=== PATIENT | female | born 1945 | race Caucasian/White ===

== ENCOUNTER → 2016-12-31 | Outpatient (CLI) | payer MEDICARE, BC, OTHER ==
--- NOTE | 2016-12-31 14:27 | REP ---
Chest two views HISTORY: Shortness of breath Comparison: 12/04/2016 The lungs are clear. The heart is normal in size. The pulmonary vasculature is normal in appearance. The bony structure is intact. A cardiac pacemaker is present. IMPRESSION: No acute disease. Signed by Yair Hartley MD 12/31/2016 02:19 P
== END ==
LOC: M RAD 13:31
PROVIDERS: ATTEND Internal Medicine Cardiovascular Disease
DX: R06.02 Shortness of breath (principal)

== ENCOUNTER → 2018-10-09 | Outpatient (CLI) | payer MEDICARE, BC, OTHER ==
--- NOTE | 2018-10-09 12:14 | REP ---
Maxillofacial CT study without contrast: History: Chronic pansinusitis. Comparison paranasal sinus radiographs are from August 20, 2007. CT findings: The frontal sinuses are clear. Ethmoid and sphenoid sinuses are clear. The mastoid air cells are normal and symmetric. Maxillary sinuses are clear except for a small mucous retention cyst and mild mucosal thickening inferiorly in the right maxillary sinus. The ostiomeatal complexes are patent bilaterally. Nasal turbinate and soft tissues are unremarkable and symmetric. Nasal septum bows gently to the left without a visible beak. No intraorbital abnormality is seen. Visualized intracranial structures are unremarkable. Impression: Minimal mucosal thickening inferiorly in the right maxillary sinus. Otherwise normal. Electronically Signed by Suraj Hannon MD 10/09/2018 12:57 P
== END ==
LOC: M RAD 10:35
PROVIDERS: ATTEND Nurse Practitioner Family
DX: J32.4 Chronic pansinusitis (principal)

== ENCOUNTER → 2019-02-19 | Outpatient (REF) | payer MEDICARE, OTHER ==
[2019-02-19 18:04] LABS: APPEARANCE, URINE CLEAR (CLEAR); BACTERIA, URINE AUTO NEGATIVE (NEGATIVE); BILIRUBIN, URINE AUTO NEGATIVE (NEGATIVE); BLOOD, URINE BLOOD 2+ (NEGATIVE); COLOR, URINE YELLOW (YELLOW); GLUCOSE, URINE (UA) AUTO NEGATIVE (NEGATIVE); KETONE, URINE AUTO NEGATIVE (NEGATIVE); LEUKOCYTE ESTERASE, URINE AUTO NEGATIVE (NEGATIVE); MUCUS, URINE SMALL (NEGATIVE); NITRITE, URINE AUTO NEGATIVE (NEGATIVE); PROTEIN, URINE AUTO NEGATIVE (NEGATIVE); RBC, URINE AUTO 11 /HPF (0-3); SQUAMOUS EPITHELIAL CELL UR AU 0 /HPF (0-6); UROBILINOGEN, URINE AUTO 0.2 mg/dL (0.0-2.0); WBC, URINE AUTO 0 /HPF (0-3)
== END ==
LOC: M LAB REF 17:18
PROVIDERS: ATTEND Obstetrics & Gynecology
DX: N81.11 Cystocele, midline (principal); N39.41 Urge incontinence

== ENCOUNTER → 2019-07-16 | Outpatient (REF) | payer MEDICARE, OTHER | LOC: M LAB REF 15:54 | PROVIDERS: ATTEND Nurse Practitioner Family | DX: R30.0 Dysuria (principal) ==

== ENCOUNTER → 2019-07-16 | Outpatient (CLI) | payer MEDICARE, OTHER ==
[2019-07-16 16:22] LABS: BASO # 0.1 10^3/uL (0.0-0.2); BASO % 0.5 % (0.0-1.0); EOS % 0.2 % (0.0-3.0); HEMATOCRIT 39.5 % (36.0-47.0); HEMOGLOBIN 12.9 g/dl (12.0-15.5); LYMPH # 0.8 10^3/uL (1.5-5.0); LYMPH % 6.6 % (24.0-44.0); MEAN CORPUSCULAR HEMOGLOBIN 28.9 pg (27.0-33.0); MEAN CORPUSCULAR HGB CONC 32.7 g/dl (32.0-36.5); MEAN CORPUSCULAR VOLUME 88.4 fl (80.0-96.0); MONO # 0.6 10^3/uL (0.0-0.8); MONO % 4.6 % (0.0-5.0); NEUTROPHILS # 10.6 10^3/uL (1.5-8.5); NEUTROPHILS % 87.5 % (36.0-66.0); PLATELET COUNT, AUTOMATED 299 10^3/uL (150-450); RED BLOOD COUNT 4.47 10^6/uL (4.00-5.40); WHITE BLOOD COUNT 12.1 10^3/uL (4.0-10.0)
[2019-07-16 16:30] LABS: INR 1.93; PROTHROMBIN TIME 21.9 SECONDS (11.8-14.0)
[2019-07-16 16:57] LABS: CREATININE FOR GFR 1.09 MG/DL (0.55-1.30); GLOMERULAR FILTRATION RATE 52.2 (>39); POTASSIUM SERUM 4.1 MEQ/L (3.5-5.1)
== END ==
LOC: M WUC 13:30
PROVIDERS: ATTEND Nurse Practitioner Family
DX: K57.93 Diverticulitis of intestine, part unspecified, without perforation or abscess with bleeding (principal); R30.0 Dysuria

== ENCOUNTER 2019-12-19 10:31 | Inpatient (IN) | payer MEDICARE, BC, OTHER ==
[~2019-12-19] VITALS: Ht 162.6 cm; Wt 83.9 kg
[~2019-12-19 10:31] MED LIST: AMIODARONE 200 MG TAB (PACERONE) PO SCH
[2019-12-19] MEDS ORDERED: ALBU83IN (10:39)
[2019-12-19] MEDS ORDERED: METO1TAB33 PO (10:39)
[2019-12-19] MEDS ORDERED: BUDE10.2 PO (10:39)
[2019-12-19] MEDS ORDERED: REST0.05 OU (10:39)
[2019-12-19] MEDS ORDERED: MAGN250T6 PO (10:39)
[2019-12-19] MEDS ORDERED: LOSA50TA88 PO (10:39)
[2019-12-19] MEDS ORDERED: FURO20TA2 PO (10:39)
[2019-12-19] MEDS ORDERED: WARF-18 PO (10:39)
[2019-12-19] MEDS ORDERED: MONT10TA4 PO (10:39)
[2019-12-19] MEDS ORDERED: INSULIN HUMAN REGULAR 100 UNITS in NS 99 ML IV SCH (10:53)
[2019-12-19] MEDS ORDERED: METOPROLOL 5 MG/5 ML VIAL As Ordered ONE (10:57)
[2019-12-19] MEDS ORDERED: INSULIN IV RATE CHANGE DOCUMENTATION ML/HR XX SCH (11:00)
[2019-12-19] MEDS ORDERED: NS 1,000 ML IV ONE ×2 (11:00)
[2019-12-19 11:04] LABS: BASO # 0.1 10^3/uL (0.0-0.2); BASO % 0.6 % (0.0-1.0); EOS # 0.1 10^3/uL (0.0-0.5); EOS % 0.4 % (0.0-3.0); HEMATOCRIT 41.2 % (36.0-47.0); HEMOGLOBIN 13.8 g/dl (12.0-15.5); LYMPH # 1.7 10^3/uL (1.5-5.0); LYMPH % 14.3 % (24.0-44.0); MEAN CORPUSCULAR HEMOGLOBIN 28.5 pg (27.0-33.0); MEAN CORPUSCULAR HGB CONC 33.5 g/dl (32.0-36.5); MEAN CORPUSCULAR VOLUME 84.9 fl (80.0-96.0); MONO # 1.5 10^3/uL (0.0-0.8); MONO % 12.5 % (0.0-5.0); NEUTROPHILS # 8.4 10^3/uL (1.5-8.5); NEUTROPHILS % 71.8 % (36.0-66.0); PLATELET COUNT, AUTOMATED 255 10^3/uL (150-450); RED BLOOD COUNT 4.85 10^6/uL (4.00-5.40); WHITE BLOOD COUNT 11.7 10^3/uL (4.0-10.0)
[2019-12-19] MEDS: METOPROLOL 5 MG/5 ML VIAL IV SCH ×2 (11:05→11:10)
[2019-12-19 11:15] LABS: INR 3.16; PROTHROMBIN TIME 32.4 SECONDS (11.8-14.0)
[2019-12-19 11:16] LABS: PARTIAL THROMBOPLASTIN TIME 48.1 SECONDS (25.0-38.4)
[2019-12-19] MEDS ORDERED: DIGOXIN INJ 0.5 MG/2 ML AMP (J1160) IV STA (11:16)
[2019-12-19] MEDS ORDERED: AMIODARONE HCL 150 MG in IV 1 EA IV STA (11:18)
[2019-12-19] MEDS ORDERED: AMIODARONE 150MG/3ML INJ (J0282) As Ordered ONE (11:24)
[2019-12-19] MEDS ORDERED: AMIODARONE HCL 150 MG/100 ML PREMIXED BAG (NEXTERONE) (J0282 PER 30MG) As Ordered ONE (11:26)
[2019-12-19 11:44] LABS: ALBUMIN 3.3 GM/DL (3.2-5.2); ALT/SGPT 20 U/L (12-78); BILIRUBIN,DIRECT 0.1 MG/DL (0.0-0.2); BILIRUBIN,TOTAL 0.7 MG/DL (0.2-1.0); CK-MB VALUE MASS 1.3 NG/ML (<3.6); CPK CREATINE PHOSPHOKINASE 75 U/L (26-192); FREE T4 1.32 NG/DL (0.76-1.46); LIPASE 109 U/L (73-393); MB/CK RELATIVE INDEX 1.73 (< OR =4); NT-PRO BNP 893 PG/ML (<450); TROPONIN I < 0.02 NG/ML (< 0.10)
[2019-12-19] MEDS ORDERED: BYST5TAB2 PO (11:47)
[2019-12-19] MEDS ORDERED: VENTAER INH (12:08)
[2019-12-19] MEDS ORDERED: WARF-23 PO (12:08)
[2019-12-19] MEDS ORDERED: VITA1CHW7 PO (12:08)
[2019-12-19] MEDS ORDERED: VITA200010 PO (12:10)
[2019-12-19] MEDS ORDERED: MAALOX 30 ML SUSP *UDC PO PRN (12:30)
[2019-12-19] MEDS ORDERED: ACETAMINOPHEN TAB 650MG DOSE (2X325MG) PO PRN (12:30)
[2019-12-19] MEDS ORDERED: MOM 30ML SUSPENSION UDC PO PRN (12:30)
[2019-12-19] MEDS ORDERED: AMIODARONE HCL 360 MG in IV 1 EA IV SCH ×2 (12:30→18:30)
[2019-12-19] MEDS ORDERED: ALBUTEROL 90 MCG/ACT 8GM HFA INHALER INH PRN (12:45)
--- NOTE | 2019-12-19 12:59 | HPEPDOC ---
General Date of Admission Date of Service: December 19, 2019 Attending Physician: WILLIAN YOUNG Chief Complaint The patient is a 74-year-old female admitted with a reason for visit of Palpitations. Source: Patient Exam Limitations: No limitations Timing/Duration: Other Severity: Moderate (since yesterday) Associated Symptoms: Other (, palpitations) History of Present Illness This is a 73 years old white female with past medical history of paroxysmal atrial fibrillation, status post permanent pacemaker secondary to sick sinus syndrome, hyperlipidemia, hypertension, obstructive sleep apnea, GERD, abdominal aortic aneurysm which improved, but again this morning she started having palpitations with chest tightness and around 8:30 and she came to ER. In the emergency room, she was found to be in atrial fibrillation with rapid ventricular response. Patient did get 1 dose of metoprolol IV without any effect Dr. Palomo was called and he recommended loading dose of IV amiodarone and a loading dose of digoxin to be given. Of the metoprolol. She developed hypotension. Hence, she received normal saline 500 mL with improvement in her blood pressure. Patient is comfortable, complaining of palpitations and chest discomfort but not pain, Position is midsternal, nonradiating, associated with palpitations, not relieved with any medication, not worsened with any position or breathing, present since yesterday, frequency is on and off. Home Medications Scheduled Budesonide/Formoterol Fumarate (Budesonide-Formoterol 160-4.5) 10.2 Gm Hfa.aer.ad, 2 PUFFS PO BID, (Reported) Cholecalciferol (Vitamin D3) (Vitamin D3) 50 Mcg Tablet, 2,000 UNITS PO DAILY, (Reported) Cyclosporine (Restasis) 0.05% Droperette, 1 DROP OU BID, (Reported) Furosemide (Furosemide) 20 Mg Tablet, 20 MG PO DAILY, (Reported) Losartan Potassium (Losartan Potassium) 50 Mg Tablet, 50 MG PO BID, (Reported) Magnesium Oxide (Magnesium Oxide) 250 Mg Tablet, 500 MG PO DAILY, (Reported) Metoprolol Succinate (Metoprolol Succinate) 100 Mg Tab.er.24h, 100 MG PO DAILY, (Reported) Montelukast Sodium (Montelukast Sodium) 10 Mg Tablet, 10 MG PO DAILY, (Reported) Warfarin Sodium (Warfarin Sodium) 2.5 Mg Tablet, 2.5 MG PO 4XWK, (Reported) takes on Friday, Friday, Friday, Friday Warfarin Sodium (Warfarin Sodium) 5 Mg Tablet, 5 MG PO 3XW, (Reported) takes on Friday, , Friday Scheduled PRN Albuterol Sulfate (Ventolin Hfa) 18 Gm Hfa.aer.ad, 2 PUFFS INH QID PRN for DYSPNEA, (Reported) Allergies Coded Allergies: TAPE (Verified Allergy, Unknown, BURN LIKE REACTION ON SKIN, 12/19/19) codeine (Verified Allergy, Unknown, 12/19/19) formaldehyde (Verified Allergy, Unknown, 12/19/19) Contrast Media (Unverified Adverse Reaction, Severe, SUNBURN LOOK TO SKIN, 01/18/10) Past Medical History Medical History Abdominal aortic aneurysm, aortic wall disorder, arthritis proximal atrial fibrillation, cardiac pacemaker, history of sick sinus syndrome, GERD, COPD, history of rheumatic fever, 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 Mother had lung disease and breast cancer and father had prostate cancer. One of her sister is diabetic Social History * Smoker: Denies Alcohol: Denies A-FIB/CHADSVASC A-FIB History Current/History of A-Fib/PAF?: Yes Current PO Anticoag Therapy: Yes Review of Systems Constitutional: Denies: Chills, Fever, Malaise, Night Sweats, Weakness, Fatigue, Weight Loss, Lethargy, Other Eyes: Denies: Pain, Vision change, Conjunctivae inflammation, Eyelid inflammation, Redness, Other ENT: Denies: Head Aches, Ear Pain, Dysphagia, Sinus Congestion, Post Nasal Drip, Sore Throat, Epistaxis, Other Symptoms Skin: Denies: Rash, Lesions, Jaundice, Bruising, Itching, Dry, Breakdown, Nail Changes, Other Pulmonary: Denies: Dyspnea, Cough, Pleuritic Chest Pain, Other Symptoms Cardiovascular: Reports: Chest Pain, Palpitations Gastrointestinal: Denies: Nausea, Vomiting, Abdominal Pain, Diarrhea, Constipation, Melena, Hematochezia, Other Symptoms Genitourinary: Denies: Dysuria, Frequency, Incontinence, Hematuria, Retention, Other Symptoms Hematologic: Denies: Bruising, Bleeding Excessively, Petecchia, Purpura, Enlarged Lymph Nodes, Other Hematologic Endocrine: Denies: Polydipsia, Polyphagia, Polyuria, Heat Intolerance, Cold Intolerance, Other Endocrine Sx Musculoskeletal: Denies: Neck Pain, Back Pain, Shoulder Pain, Arm Pain, Hand Pain, Leg Pain, Foot Pain, Joint Pain, Muscle Pain, Spasms, Other Symptoms Neurological: Denies: Weakness, Numbness, Change in speech, Confusion Physical Examination General Exam: Positive: Alert, Cooperative Eye Exam: Positive: PERRLA, Conjunctiva & lids normal ENT Exam: Positive: Atraumatic, Mucous membr. moist/pink Neck Exam: Positive: Supple Chest Exam: Positive: Clear to auscultation, Normal air movement Heart Exam: Positive: Tachycardic, Irregular Rhythm, Normal S1, Normal S2 Telemetry: Positive: Atrial fibrillation Abdomen Exam: Positive: Normal bowel sounds, Soft Extremity Exam: Positive: Normal pulses Skin Exam: Positive: Nl turgor and temperature Neuro Exam: Positive: Strength at 5/5 X4 ext, Sensation Intact, Cranial Nerves 3-12 NL Psych Exam: Positive: Mood NL, Oriented x 3 Vital Signs Vital Signs Date Time Temp Pulse Resp B/P (MAP) Pulse Ox O2 Delivery O2 Flow Rate FiO2 12/19/19 12:00 131 128/68 (88) 96 Room Air 12/19/19 10:32 99.4 18 Laboratory Data Labs 24H Laboratory Tests 2 12/19/19 10:54: Immature Granulocyte % (Auto) 0.4, Neutrophils (%) (Auto) 71.8H, Lymphocytes (%) (Auto) 14.3L, Monocytes (%) (Auto) 12.5H, Eosinophils (%) (Auto) 0.4, Basophils (%) (Auto) 0.6, Neutrophils # (Auto) 8.4, Lymphocytes # (Auto) 1.7, Monocytes # (Auto) 1.5H, Eosinophils # (Auto) 0.1, Basophils # (Auto) 0.1, Nucleated Red Blood Cells % (auto) 0.0, Prothrombin Time 32.4H, Prothromb Time International Ratio 3.16, Activated Partial Thromboplast Time 48.1H, Magnesium Level 2.0, Total Bilirubin 0.7, Direct Bilirubin 0.1, Aspartate Amino Transf (AST/SGOT) 16, Alanine Aminotransferase (ALT/SGPT) 20, Alkaline Phosphatase 89, Total Creatine Kinase 75, Creatine Kinase MB 1.3, Creatine Kinase MB Relative Index 1.73, Troponin I < 0.02, WK-Qnr-[id number]-Type Natriuretic Peptide 893H, Total Protein 7.0, Albumin 3.3, Albumin/Globulin Ratio 0.9L, Lipase 109, Thyroid Stimulating Hormone (TSH) 2.940, Free Thyroxine 1.32 12/19/19 10:59: POC Glucose (Misc Panel) 139H, POC Sodium (Misc Panel) 137, POC Potassium (Misc Panel) 3.7, POC Chloride (Misc Panel) 100, POC Total CO2 (Misc Panel) 26.0, POC Blood Urea Nitrogen (Misc Panel 20, POC Ionized Calcium (Misc Panel) 4.8, POC Creatinine (Misc Panel) 1.3, POC Hematocrit (Misc Panel) 41.0 CBC/BMP Laboratory Tests 12/19/19 10:54 Problems (1) Chest pain Status: Acute Problem Text: Chest discomfort, most likely secondary to proximal atrial fibrillation with rapid ventricular response Admitted to PCU for close monitoring ON cardiac telemetry Serial troponins First troponin is negative EKG shows atrial fibrillation with rapid ventricular response Chest x-ray is within normal range All other laboratory work within normal range Cardiology consult with Dr. Palomo was called by Dr. Montemayor Bed rest 2 g sodium diet DVT prophylaxis: Patient is on Coumadin (2) Atrial fibrillation with rapid ventricular response Status: Acute Problem Text: Patient received 1 dose of digoxin 0.5 mg IV and will give her 2 more doses of 0.25 mg IV every 8 hours Patient also received loading dose of amiodarone 150 mg over 10 minutes and will continue as per protocol 1 mg/h for 6 hours and 0.5 mg per hour for 18 hours We will continue patient's all home medications but beta blockers will be started from tomorrow to prevent hypotension, as she is also getting Amiodarone infusion cocurrently. Monitor patient's blood pressure and heart rate closely and adjust medication accordingly very gently. Patient does have a permanent pacemaker previously placed in for sick sinus syndrome Further recommendation as per cardiology and patient is seen by by the group (3) HTN (hypertension) Status: Chronic Problem Text: Continue home meds (4) DENNYS (obstructive sleep apnea) Problem Text: Continue home meds (5) Pacemaker Status: Chronic Problem Text: History of sick sinus syndrome status post permanent pacemaker placement (6) Hyperlipemia Status: Chronic Problem Text: Continue home meds Plan / VTE VTE Prophylaxis Ordered?: Yes BEV SIMMONS MD December 19, 2019 12:59
[2019-12-19 13:50] VITALS: BP 134/80
[2019-12-19] MEDS ORDERED: METOPROLOL SUCC (TopROL XL) 50MG **XL** TAB PO ONE ×2 (15:45→21:00)
[2019-12-19 16:00] VITALS: BP 143/60
[2019-12-19] MEDS: SYMBICORT 160/4.5MCG INHALER 6GM INH SCH (18:02)
[2019-12-19] MEDS: DIGOXIN INJ 0.5 MG/2 ML AMP (J1160) IV SCH (18:40)
[2019-12-19] MEDS: AMIODARONE 200 MG TAB (PACERONE) PO SCH (18:40)
[2019-12-19] MEDS ORDERED: DIGOXIN INJ 0.5 MG/2 ML AMP (J1160) IV SCH (19:00)
[2019-12-19 20:00] VITALS: BP 109/51
[2019-12-19] MEDS ORDERED: LOSARTAN 50MG TABLET PO SCH (21:00)
--- NOTE | 2019-12-19 21:07 | ECGEPIP ---
[facility] - ED Test Date: 2019-12-19 Pat Name: PATTI HART Department: Room: - Gender: Female Porter Baggage: luzmabrody : 1945 Requested By: Solomon Sanchez Order Number: [id number] Reading MD: Tamera Pinzon Measurements Intervals [place] Rate: 152 P: OK: 0 QRS: -29 QRSD: 115 T: 126 QT: 294 QTc: 468 Interpretive Statements ATRIAL FIBRILLATION WITH RAPID VENTRICULAR RESPONSE BORDERLINE LEFT AXIS DEVIATION MODERATE INTRAVENTRICULAR CONDUCTION DELAY VOLTAGE CRITERIA FOR LVH ST DEVIATION AND MODERATE T-WAVE ABNORMALITY, CONSIDER ISCHEMIA NO PRIOR Electronically Signed on 12-19-2019 21:07:09 EDT by Tamera Pinzon
[2019-12-20] VITALS: BP 120/56
[2019-12-20] MEDS: DIGOXIN INJ 0.5 MG/2 ML AMP (J1160) IV SCH (03:18)
[2019-12-20 04:00] VITALS: BP 132/68
[2019-12-20 04:24] LABS: HEMATOCRIT 35.8 % (36.0-47.0); HEMOGLOBIN 12.1 g/dl (12.0-15.5); MEAN CORPUSCULAR HEMOGLOBIN 28.9 pg (27.0-33.0); MEAN CORPUSCULAR HGB CONC 33.8 g/dl (32.0-36.5); MEAN CORPUSCULAR VOLUME 85.4 fl (80.0-96.0); PLATELET COUNT, AUTOMATED 222 10^3/uL (150-450); RED BLOOD COUNT 4.19 10^6/uL (4.00-5.40); WHITE BLOOD COUNT 8.5 10^3/uL (4.0-10.0)
[2019-12-20 04:34] LABS: INR 2.82; PROTHROMBIN TIME 29.6 SECONDS (11.8-14.0)
[2019-12-20 04:58] LABS: ALBUMIN 2.6 GM/DL (3.2-5.2); BILIRUBIN,TOTAL 0.4 MG/DL (0.2-1.0); GLOMERULAR FILTRATION RATE 57.5 (>39); MAGNESIUM LEVEL 1.8 MG/DL (1.8-2.4); TOTAL PROTEIN 5.8 GM/DL (6.4-8.2); TROPONIN I 0.03 NG/ML (< 0.10)
--- NOTE | 2019-12-20 07:07 | ECGEPIP ---
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
[2019-12-20] MEDS: SYMBICORT 160/4.5MCG INHALER 6GM INH SCH (07:13)
--- NOTE | 2019-12-20 07:19 | CR ---
DATE OF CONSULTATION: 12/03/2019 REFERRING PROVIDER: Dr. Johnson REASON FOR THE CONSULTATION: Atrial fibrillation. PRIMARY WELDING EQUIPMENT REPAIRER: Dr. Blake Terry HISTORY OF PRESENT ILLNESS: 74-year-old woman with a history of paroxysmal atrial fibrillation who came here earlier this morning around 8 to 9 o'clock with palpitations and she was found to be in atrial fibrillation with a rapid ventricular rate. She was given IV Lopressor with drop of her blood pressure and she became hypotensive. She responded to 500 mL of fluid bolus with normal saline. The case was discussed with the ER provider and amiodarone was recommended as well as a loading dose of digoxin. Serum troponin was negative. She was admitted for further management and monitoring. When I saw Mrs. Samara Riley on the floor, she was laying supine in bed in no acute distress at rest. She stated she is on her third admission this year so far with paroxysmal atrial fibrillation. On the first hospitalization, she was transferred from [facility] to [place], [place], and at that time she had the pharmacological nuclear stress test and it seems that it was negative, official report is not available at this present time. She then went to the ER at [facility] last month with atrial fibrillation with a rapid ventricular rate, she was treated. Hospitalization was recommended, but she decided to go home and by the time she arrived at home, she was in normal sinus rhythm. Since then, she has been doing fairly well until this week when she started with episode of irregular heart rates, but last evening it started longer and she decided to come to the ER this morning for further evaluation. Her atrial fibrillation is usually associated with some discomfort in her chest, as well as dizziness, and shortness of breath. She denies any syncope or near syncope. She had no focal manifestation. She does have a history of pedal edema, but none lately. She is not coughing. She denies any fever. She denies any bleeding. She had no nausea, vomiting, diarrhea, melena or hematemesis. PAST MEDICAL HISTORY: Positive for hypertension, paroxysmal atrial fibrillation, sick sinus syndrome that was symptomatic with permanent pacemaker implantation and at that time she stated her heart rate was in the 30s. She also has a history of hyperlipidemia, obstructive sleep apnea, gastroesophageal reflux disease, and abdominal aortic aneurysm. There is no history of significant valvular heart disease, transient ischemic attack/CVA, diabetes mellitus, or kidney disease. She states she has a normal left ventricular systolic fraction and she thinks it was about 60%. There is no history of sudden cardiac . She does have a history of arthritis, multiple renal cysts and she is a carrier for hemophilia. PAST SURGICAL HISTORY: Positive for appendectomy, bilateral cataract extraction, colon polypectomy, hysterectomy, removal of a hyperplastic polyp from the stomach, lumpectomy on the left breast, and permanent pacemaker implantation many years ago. FAMILY HISTORY: Positive for lung disease. Her mother had breast cancer and her father had prostate cancer. She has a sister with diabetes mellitus. SOCIAL HISTORY: The patient lives with her and she denies any smoking or EtOH abuse. She denies any illicit drugs. ALLERGIES: - ADHESIVE TAPE - CODEINE - FORMALDEHYDE - IV CONTRAST MEDIA ADVANCED DIRECTIVES: The patient is a full code. MEDICATIONS AT HOME: - Lasix 20 mg by mouth daily - losartan potassium 50 mg by mouth twice a day - magnesium oxide 500 mg by mouth daily - metoprolol succinate 100 mg by mouth daily in the evening - Singulair 10 mg by mouth daily - warfarin as directed 2.5 mg on four days and 5 mg on 3 days during the week - vitamin D 2000 units by mouth daily - Restasis eye drops - Symbicort - albuterol 18 mcg HFA four times a day as needed for shortness of breath CURRENT MEDICATIONS: - warfarin as directed - metoprolol succinate 100 mg by mouth daily in the evening - Lasix 20 mg by mouth daily - Singulair 10 mg by mouth daily - losartan potassium 50 mg by mouth twice a day - Symbicort 160/4.5 mcg two puffs twice a day via inhalation - digoxin being loaded - IV amiodarone - magnesium oxide 30 mL daily as needed - Tylenol 650 grams every 4 hours as needed for pain or fever - albuterol sulfate 2 puffs four times a day - Mylanta 30 mL by mouth daily as needed for dyspepsia PHYSICAL EXAMINATION: The patient is alert and oriented, in no acute distress at rest. Vital Signs: When I saw her, revealed a blood pressure of 134/80 with a pulse of 121, respirations 18, a maximum temperature 98.7 degrees Fahrenheit, with an oxygen saturation of 98% on room air. Examination of the Head: Atraumatic. Neck: Neck is supple and no jugular venous distention (JVD) appreciated. No carotid bruits. Lungs did not reveal any wheezing or crackles. Heart Examination: Revealed irregular heart sounds without gallops. The PMI is not displaced. There is no rub. I could not appreciate any murmurs. Abdomen is soft and unremarkable. Extremities revealed no pedal edema. Peripheral pulses, dorsalis pedis were +2 and equal. Neurological examination was negative for focal deficit. LABORATORY DATA: CBC done today revealed a WBC of 11.7, hemoglobin 13.8, hematocrit 41.2 and platelets 255,000. PT was 32.4 with an INR of 3.16 and a PTT of 48.1. Liver enzymes revealed a total bilirubin of 0.7, direct bilirubin 0.1 AST 16, ALT 20, alkaline phosphatase 89, total protein 7.3, albumin 3.3. Serum TSH was 2.9 and free T4 1.3. Serum troponin was less than 0.02 and less than 0.05. Pro-BNP was 893. Echocardiogram on admission revealed atrial fibrillation with a rapid ventricular rate of 152 beats per minute, left ventricular hypertrophy (LVH) and ST-T abnormalities. IMPRESSION: The patient is a 74 year-old woman with history of paroxysmal atrial fibrillation who has been more symptomatic, she is today on her third hospitalization for this year. She is concerned and we have discussed about her medications as well as her symptoms and further treatment. After seeing her early in the evening, she spontaneously cardioverted to a normal sinus rhythm. I have changed her IV amiodarone to by mouth amiodarone and she will continue with the loading dose of the digoxin. I have changed her metoprolol succinate to 100 mg by mouth in the morning and 50 mg by mouth in the evening. She will continue with the losartan, but only once a day. She also will continue with her furosemide. If she remains in sinus rhythm, she probably can go home tomorrow and Dr. Terry will be seeing her prior to her discharge and he will be giving further recommendations about her medications. The case was discussed with the hospitalist and the above was discussed with the patient.
[2019-12-20 08:00] VITALS: BP 128/72
[2019-12-20] MEDS: AMIODARONE 200 MG TAB (PACERONE) PO SCH (08:53)
[2019-12-20 08:54] VITALS: BP 128/72
--- NOTE | 2019-12-20 08:56 | IPN ---
DATE: 12/20/2019 Mrs. Riley is feeling much better. She says almost instantaneously after she went into sinus rhythm her symptoms essentially immediately resolved. She has no specific complaints today. Vital Signs: Blood pressure 132/68. Heart rate has been 60s to 80s. She is afebrile. Saturation 95% on room air. She is alert, oriented and appropriate. Her jugular venous pulse (JVP) is not high. Lungs are clear. Heart exam reveals regular rhythm. I do not appreciate gallop, rub or murmur. Abdomen is soft. Extremities are free of edema. LABORATORIES: CBC is normal. Basic metabolic panel is also normal. Cardiac enzymes have remained negative. Terminal pro BNP on admission was 819. ASSESSMENT/PLAN: Mrs. Riley is a 74-year-old lady who was admitted over the weekend with her third recent episode of atrial fibrillation with rapid ventricular response. She gets very symptomatic and tachycardiac, even though she at her baseline is on 100 mg of Toprol daily. Consequently, I think it is at this point necessary that we will start her on antiarrhythmics. In the past, she poorly tolerated flecainide and Multaq and consequently I think that these are choices that are not an option. I do think it is probably appropriate to keep her on amiodarone. I will discharge her on 200 mg twice a day, which is her current dose. I also agree with increasing the dose of Toprol to 150 mg daily. I do not believe that she should be discharged on digoxin. She has been chronically anticoagulated with Coumadin and the dose will have to be adjusted downward due to concomitant amiodarone administration. She normally takes 2.5 mg 4 days a week and 5 mg 3 days a week and I told her to take 2.5 mg every day. Will plan to see her followup soon and I also will arrange for her having her INR checked soon as well.
[2019-12-20] MEDS ORDERED: FUROSEMIDE 20 MG TAB PO SCH (09:00)
[2019-12-20] MEDS ORDERED: PNEUMOCOCCAL VACCINE 0.5ML SYRINGE(90732) PNEUMOVAX 23 IM ONE (09:00)
[2019-12-20] MEDS ORDERED: LOSARTAN 50MG TABLET PO SCH (09:00)
[2019-12-20] MEDS ORDERED: MONTELUKAST 10 MG TAB PO SCH (09:00)
[2019-12-20] MEDS ORDERED: METOPROLOL SUCC (TopROL XL) 100MG *XL* TAB PO SCH ×2 (09:00→17:00)
[2019-12-20] MEDS ORDERED: WARF-18 PO (10:10)
[2019-12-20] MEDS ORDERED: METO1TAB7 PO (10:10)
[2019-12-20] MEDS ORDERED: AMIO200T PO (10:10)
--- NOTE | 2019-12-20 10:10 | REP ---
PORTABLE CHEST X-RAY: SINGLE VIEW, REPEAT DICTATION. HISTORY: Chest pain. Preliminary report is provided at the time of the exam by Dr. Rogers. COMPARISON CHEST X-RAY: December 31, 2016] FINDINGS: A multilead pacemaker is noted in the right heart via the left side as before. The heart is not enlarged. There are degenerative changes in the thoracic spine. There are small linear densities in each lateral pleural angle consistent with plate-like atelectasis. No infiltrate or effusion is seen. Pulmonary vasculature is not increased. IMPRESSION: Mild plate-like atelectasis in both lateral pleural angles. No evidence of infiltrate or effusion. Pacemaker is seen. Normal heart size. Electronically Signed by Suraj Hannon MD 12/20/2019 10:27 A
--- NOTE | 2019-12-20 11:14 | DS.PDOC ---
Discharge Summary General Date of Admission December 19, 2019 at 12:22 Date of Discharge 12/20/19 Discharge Summary PROCEDURES PERFORMED DURING STAY: None. ADMITTING DIAGNOSES: 1. A. fib with RVR. DISCHARGE DIAGNOSES: 1. A. fib with RVR, status post PPM, hyperlipidemia, hypertension, obstructive sleep apnea, GERD, abdominal aortic aneurysm, chest pain. COMPLICATIONS/CHIEF COMPLAINT: Atrial Fibrillation With Rapid Ventricular Respons. HISTORY OF PRESENT ILLNESS: This is a 73 years old white female with past medical history of paroxysmal atrial fibrillation, status post permanent pacemaker secondary to sick sinus syndrome, hyperlipidemia, hypertension, obstructive sleep apnea, GERD, abdominal aortic aneurysm which improved, but again this morning she started having palpitations with chest tightness and around 8:30 and she came to ER. In the emergency room, she was found to be in atrial fibrillation with rapid ventricular response. Patient did get 1 dose of metoprolol IV without any effect Dr. Palomo was called and he recommended loading dose of IV amiodarone and a loading dose of digoxin to be given. Of the metoprolol. She developed hypotension. Hence, she received normal saline 500 mL with improvement in her blood pressure. Patient is comfortable, complaining of palpitations and chest discomfort but not pain, Position is midsternal, nonradiating, associated with palpitations, not relieved with any medication, not worsened with any position or breathing, present since yesterday, frequency is on and off.. HOSPITAL COURSE: Patient was admitted with the diagnosis of A. fib with RVR. Patient received 1 dose of digoxin 0.5 mg IV and was scheduled for 2 more doses of 0.5 mg IV every 8 hours 2 Patient also received loading dose of amiodarone 150 mg over 10 minutes and was continued as per protocol 1 mg/h for 6 hours and 0.5 mg per hour for 18 hours On her second infusion set with amiodarone. Patient converted to normal sinus rhythm, amiodarone drip was DC'd and she was started on amiodarone 200 mg by mouth twice a day IV digoxin was DC'd as it was not needed anymore and metoprolol was increased. The total dose of 150 mg by mouth daily Patient was seen by Dr. Palomo as well as Dr. Terry, her Coumadin also had been adjusted to 2.5 mg by mouth daily and she will follow up with Dr. Terry for INR Patient will be discharged home on amiodarone 200 mg by mouth twice a day, metoprolol 150 mg by mouth daily and all her home medications along with Coumadin 2.5 mg by mouth daily Patient is a completely asymptomatic. All troponins were negative. No more chest pain. She rated be discharged home today. DISCHARGE MEDICATIONS: Please see below. ALLERGIES: Please see below. PHYSICAL EXAMINATION ON DISCHARGE: VITAL SIGNS: Please see below. GENERAL: Within normal limits HEENT: PERRLA. Extraocular muscles intact NECK: Supple CARDIOVASCULAR EXAMINATION: S1, S2, regular RESPIRATORY EXAMINATION: Clear to A&P ABDOMINAL EXAMINATION: Benign EXTREMITIES: No clubbing, cyanosis, edema SKIN: Normal NEUROLOGICAL EXAMINATION: . No focal motor sensory deficit PSYCHIATRIC EXAMINATION: Normal LABORATORY DATA: Please see below. IMAGING: Not applicable PROGNOSIS: Good ACTIVITY: As tolerated. DIET: As tolerated DISCHARGE PLAN: Discharged home DISPOSITION: . Home DISCHARGE INSTRUCTIONS: 1. As per discharge instructions. ITEMS TO FOLLOWUP ON ON OUTPATIENT: 1. All over Dr. Terry as soon as possible. DISCHARGE CONDITION: Stable. TIME SPENT ON DISCHARGE: 35 minutes. Vital Signs/I&Os Vital Signs Date Time Temp Pulse Resp B/P (MAP) Pulse Ox O2 Delivery O2 Flow Rate FiO2 12/20/19 08:54 128/72 12/20/19 08:00 98.6 69 17 98 Room Air I&O- Last 24 Hours up to 6 AM 12/20/19 06:00 Intake Total 1734 ml Output Total 300 ml Balance 1434 ml Laboratory Data Labs 24H Laboratory Tests 2 12/19/19 19:59: Troponin I 0.05# 12/20/19 03:35: Troponin I 0.03#, Nucleated Red Blood Cells % (auto) 0.0, Prothrombin Time 29.6H, Prothromb Time International Ratio 2.82, Anion Gap 8, Glomerular Filtration Rate 57.5, Calcium Level 8.0L, Magnesium Level 1.8, Total Bilirubin 0.4, Aspartate Amino Transf (AST/SGOT) 13, Alanine Aminotransferase (ALT/SGPT) 18, Alkaline Phosphatase 84, Total Protein 5.8L, Albumin 2.6#L, Albumin/Globulin Ratio 0.8L CBC/BMP Laboratory Tests 12/20/19 03:35 Discharge Medications Scheduled Amiodarone HCl (Amiodarone HCl) 200 Mg Tablet, 200 MG PO BID Budesonide/Formoterol Fumarate (Budesonide-Formoterol 160-4.5) 10.2 Gm Hfa.aer.ad, 2 PUFFS PO BID, (Reported) Cholecalciferol (Vitamin D3) (Vitamin D3) 50 Mcg Tablet, 2,000 UNITS PO DAILY, (Reported) Cyclosporine (Restasis) 0.05% Droperette, 1 DROP OU BID, (Reported) Furosemide (Furosemide) 20 Mg Tablet, 20 MG PO DAILY, (Reported) Losartan Potassium (Losartan Potassium) 50 Mg Tablet, 50 MG PO BID, (Reported) Magnesium Oxide (Magnesium Oxide) 250 Mg Tablet, 500 MG PO DAILY, (Reported) Metoprolol Succinate (Metoprolol Succinate) 100 Mg Tab.er.24h, 100 MG PO DAILY, (Reported) Metoprolol Succinate (Metoprolol Succinate) 50 Mg Tab.er.24h, 50 MG PO QHS Montelukast Sodium (Montelukast Sodium) 10 Mg Tablet, 10 MG PO DAILY, (Reported) Warfarin Sodium (Warfarin Sodium) 2.5 Mg Tablet, 1 TAB PO DAILY Scheduled PRN Albuterol Sulfate (Ventolin Hfa) 18 Gm Hfa.aer.ad, 2 PUFFS INH QID PRN for DYSPNEA, (Reported) Allergies Coded Allergies: TAPE (Verified Allergy, Unknown, BURN LIKE REACTION ON SKIN, 12/19/19) codeine (Verified Allergy, Unknown, 12/19/19) formaldehyde (Verified Allergy, Unknown, 12/19/19) Contrast Media (Unverified Adverse Reaction, Severe, SUNBURN LOOK TO SKIN, 01/18/10) BEV SIMMONS MD December 20, 2019 11:14
[2019-12-20] MEDS ORDERED: WARFARIN SOD 2.5 MG TAB PO SCH (17:00)
[2019-12-20] MEDS ORDERED: METOPROLOL SUCC (TopROL XL) 50MG **XL** TAB PO SCH (21:00)
[2019-12-21] MEDS ORDERED: WARFARIN SOD 5 MG TAB PO SCH (17:00)
== END 2019-12-20 12:14 | disposition home or self-care (01) | DRG 310 ==
LOC: M ED 10:31 → M ED INP 12:22 → ENRESERV 12:47 → M PCU 13:47
PROVIDERS: ADMIT Internal Medicine; ATTEND Internal Medicine
DX: I48.0 Paroxysmal atrial fibrillation (principal); I10 Essential (primary) hypertension; E78.5 Hyperlipidemia, unspecified; G47.33 Obstructive sleep apnea (adult) (pediatric); K21.9 Gastro-esophageal reflux disease without esophagitis; I71.4 Abdominal aortic aneurysm, without rupture; Z79.899 Other long term (current) drug therapy; Z88.5 Allergy status to narcotic agent; Z91.041 Radiographic dye allergy status; Z95.0 Presence of cardiac pacemaker; I95.9 Hypotension, unspecified; Z88.8 Allergy status to other drugs, medicaments and biological substances

== ENCOUNTER → 2020-04-24 | Outpatient (CLI) | payer MEDICARE, BC, OTHER ==
[~2020-04-24] MED LIST changes: +ALBU83IN; +AMIO200T3 PO; -AMIODARONE 200 MG TAB (PACERONE) PO SCH; +BUDE10.2 PO; +BYST5TAB2 PO; +FAMO40TA3 PO; +FURO20TA2 PO; +LOSA50TA88 PO; +MAGN250T6 PO; +METO1TAB33 PO; +METO1TAB7 PO; +MONT10TA4 PO; +REST0.05 OU; +VENTAER INH; +VITA1CHW7 PO; +VITA200010 PO; +WARF-18 PO; +WARF-23 PO
[2020-04-24 08:24] LABS: AMORPHOUS SEDIMENT SMALL (NEGATIVE); APPEARANCE, URINE CLEAR (CLEAR); BACTERIA, URINE AUTO NEGATIVE (NEGATIVE); BILIRUBIN, URINE AUTO NEGATIVE (NEGATIVE); BLOOD, URINE BLOOD 2+ (NEGATIVE); COLOR, URINE YELLOW (YELLOW); GLUCOSE, URINE (UA) AUTO NEGATIVE (NEGATIVE); KETONE, URINE AUTO NEGATIVE (NEGATIVE); LEUKOCYTE ESTERASE, URINE AUTO NEGATIVE (NEGATIVE); MUCUS, URINE SMALL (NEGATIVE); NITRITE, URINE AUTO NEGATIVE (NEGATIVE); PROTEIN, URINE AUTO NEGATIVE (NEGATIVE); RBC, URINE AUTO 10 /HPF (0-3); SPECIFIC GRAVITY URINE AUTO 1.008 (1.002-1.035); SQUAMOUS EPITHELIAL CELL UR AU 0 /HPF (0-6); UROBILINOGEN, URINE AUTO 0.2 mg/dL (0.0-2.0); WBC, URINE AUTO 1 /HPF (0-3)
--- NOTE | 2020-05-04 14:09 | REP ---
URINARY TRACT SONOGRAPHY HISTORY: Acute kidney injury. FINDINGS: Scanning through the urine filled bladder shows that it is incompletely distended. Visualized bladder grove are smooth. Renal cortical echogenicity pattern is slightly increased bilaterally, consistent with some degree of chronic medical renal disease. There is no evidence of hydronephrosis on either side. There is mild diffuse cortical thing. There is a 1.8 x 1.2 x 1.4 cm cyst in the left mid kidney centrally. Kidneys are otherwise morphologically intact. Right renal dimensions are 9.6 x 5.9 x 5.3 cm. Left kidney measures 10.0 x 5.1 x 5.2 cm. IMPRESSION: Mildly increased renal cortical echogenicity pattern. Small cyst left kidney. Otherwise, negative. MTDD
== END ==
LOC: M RAD 06:35
PROVIDERS: ATTEND Nurse Practitioner Family
DX: N17.9 Acute kidney failure, unspecified (principal); N28.1 Cyst of kidney, acquired

== ENCOUNTER 2020-04-28 01:18 | Emergency (ER) | payer MEDICARE, BC, OTHER ==
[~2020-04-28] VITALS: Ht 163.8 cm; Wt 81.8 kg
[~2020-04-28 01:18] MED LIST changes: -FAMO40TA3 PO
[2020-04-28] MEDS ORDERED: FAMO40TA3 PO (01:43)
[2020-04-28 02:05] LABS: BASO % 0.2 % (0.0-1.0); HEMATOCRIT 38.1 % (36.0-47.0); HEMOGLOBIN 12.8 g/dl (12.0-15.5); LYMPH # 0.9 10^3/uL (1.5-5.0); LYMPH % 4.4 % (24.0-44.0); MEAN CORPUSCULAR HEMOGLOBIN 29.4 pg (27.0-33.0); MEAN CORPUSCULAR HGB CONC 33.6 g/dl (32.0-36.5); MEAN CORPUSCULAR VOLUME 87.4 fl (80.0-96.0); MONO # 2.5 10^3/uL (0.0-0.8); MONO % 12.3 % (0.0-5.0); NEUTROPHILS # 16.7 10^3/uL (1.5-8.5); NEUTROPHILS % 82.7 % (36.0-66.0); PLATELET COUNT, AUTOMATED 276 10^3/uL (150-450); RED BLOOD COUNT 4.36 10^6/uL (4.00-5.40); WHITE BLOOD COUNT 20.2 10^3/uL (4.0-10.0)
[2020-04-28] MEDS ORDERED: ONDANSETRON 4MG/2ML VIAL IV ONE (02:15)
[2020-04-28] MEDS ORDERED: NS 1,000 ML IV ONE (02:15)
--- NOTE | 2020-04-28 02:35 | REPVR ---
PROCEDURE INFORMATION: Exam: XR Chest, 1 View Exam date and time: 04/28/2020 2:13 AM Age: 74 years old Clinical indication: Other: Chest pain TECHNIQUE: Imaging protocol: XR of the chest Views: 1 view. COMPARISON: [facility] PORTABLE CHEST X-RAY 12/19/2019 11:01 AM FINDINGS: Limitations: Examination is limited somewhat by the portable technique. Tubes, catheters and devices: There is a dual-chamber pacemaker on the left with leads in satisfactory position. Lungs: Unremarkable. No consolidation. Pleural space: Unremarkable. No pleural effusion. No pneumothorax. Heart/Mediastinum: Unremarkable. No cardiomegaly. Vasculature: Mild atherosclerotic calcification of the aortic arch. Bones/joints: Unremarkable. IMPRESSION: No acute infiltrate. Electronically signed by: Fredo Gilmore On 04/28/2020 02:34:37 AM
[2020-04-28] MEDS: MORPHINE 2 MG/ML 1ML VIAL (J2270) IV PRN ×2 (02:48→03:47)
[2020-04-28 02:50] LABS: CALCIUM LEVEL 8.5 MG/DL (8.8-10.2); CK-MB VALUE MASS 45.6 NG/ML (<3.6); CREATININE FOR GFR 1.3 MG/DL (0.55-1.30); GLOMERULAR FILTRATION RATE 42.5 (>39); MB/CK RELATIVE INDEX 8.98 (< OR =4); POTASSIUM SERUM 3.6 MEQ/L (3.5-5.1); TROPONIN I 13.2 NG/ML (< 0.10)
[2020-04-28] MEDS ORDERED: methylPREDNISolone 125MG 2ML VIAL IV ONE (03:15)
[2020-04-28] MEDS ORDERED: diphenhydrAMINE 50MG/ML VIAL (J1200) IV ONE (03:15)
[2020-04-28 04:20] LABS: INR 2.15; PROTHROMBIN TIME 24.5 SECONDS (12.5-14.3)
[2020-04-28 04:21] LABS: PARTIAL THROMBOPLASTIN TIME 44.9 SECONDS (24.2-38.5)
--- NOTE | 2020-04-28 04:29 | REPVR ---
PROCEDURE INFORMATION: Exam: CT Chest With Contrast Exam date and time: 04/28/2020 2:59 AM Age: 74 years old Clinical indication: Chest pain; Type not specified; Prior surgery; Surgery date: Post-operative (0-2 days); Surgery type: Ablation cardiac; Additional info: Chest pain, R/O tad TECHNIQUE: Imaging protocol: Computed tomography of the chest with intravenous contrast. Radiation optimization: All CT scans at this facility use at least one of these dose optimization techniques: automated exposure control; mA and/or kV adjustment per patient size (includes targeted exams where dose is matched to clinical indication); or iterative reconstruction. Contrast material: ISO; Contrast volume: 75 ml; Contrast route: INTRAVENOUS (IV); COMPARISON: [facility] PORTABLE CHEST X-RAY 04/28/2020 1:55 AM FINDINGS: Tubes, catheters and devices: There is a dual-chamber pacemaker on the left with leads in satisfactory position. Tracheobronchial tree: Visualized airway is unremarkable. Lungs: Mild consolidations in the lower lobes bilaterally. Pleural space: Unremarkable. No pneumothorax. No pleural effusion. Heart: Heart size is within normal limits. Moderate pericardial effusion. Pericardial effusion measuring up to 1.5 cm thick. Aorta: Moderate atherosclerotic disease. No aortic aneurysm. No aortic dissection. Proximal thoracic aorta measures 3.0 cm in diameter. Aortic arch measures 2.9 cm in diameter. Descending thoracic aorta measures 2.4 cm in diameter. No aortic rupture. Lymph nodes: Unremarkable. No enlarged lymph nodes. Kidneys and ureters: Scarring of the kidneys bilaterally. Bones/joints: Mild degenerative spine. No acute fracture. Soft tissues: Unremarkable. IMPRESSION: 1. No aortic aneurysm or dissection. 2. Moderate pericardial effusion. Unknown etiology. 3. Mild consolidations in the lower lobes bilaterally. Pulmonary edema versus pneumonia versus atelectasis. Electronically signed by: Fredo Gilmore On 04/28/2020 04:29:00 AM
[2020-04-28 05:45] VITALS: BP 174/85
--- NOTE | 2020-04-28 17:59 | ECGEPIP ---
[facility] - ED Test Date: 2020-04-28 Pat Name: PATTI HART Department: Room: - Gender: Female [employer]: jefferson : 1945 Requested By: ABIMBOLA Han Order Number: [id number] Reading MD: Jordan Gloria Measurements Intervals [place] Rate: 84 P: 19 MT: 199 QRS: -26 QRSD: 130 T: 63 QT: 427 QTc: 505 Interpretive Statements SINUS RHYTHM VOLTAGE CRITERIA FOR LVH Nonspecific ST-T wave abnormalities Similar to tracing done 12-19-19 Electronically Signed on 04-28-2020 17:59:17 EDT by Jordan Gloria
== END 2020-04-28 06:16 | disposition short-term general hospital (02) ==
LOC: M ED 01:18
DX: G89.18 Other acute postprocedural pain (principal); R78.89 Finding of other specified substances, not normally found in blood; R91.8 Other nonspecific abnormal finding of lung field; I48.91 Unspecified atrial fibrillation; I10 Essential (primary) hypertension; Z91.041 Radiographic dye allergy status; Z91.048 Other nonmedicinal substance allergy status; Z88.6 Allergy status to analgesic agent; Z79.51 Long term (current) use of inhaled steroids; Z79.899 Other long term (current) drug therapy; Z79.01 Long term (current) use of anticoagulants
CPT/HCPCS: 71045; 71275; 80048; 82550; 82553; 83880; 84484; 85025; 85610; 85730; 93005; 93041; 94760; 96361; 96374; 96375; 96376; 99285; J1200; J2270; J2405; J2930

== ENCOUNTER → 2020-06-01 | Outpatient (CLI) | payer MEDICARE, BC, OTHER ==
[~2020-06-01] MED LIST changes: +FAMO40TA3 PO
--- NOTE | 2020-06-01 17:27 | REP ---
INDICATION: SOB COMPARISON: 04/28/2020 TECHNIQUE: PA and lateral. FINDINGS: The mediastinum and cardiac silhouette are stable. Pacemaker in stable position. There is blunting of the right costophrenic angle suggesting the possibility of small pleural reaction as well as mild bibasilar atelectasis. Clinical correlation is recommended. No pneumothorax. Skeletal structures intact. IMPRESSION: Small right pleural reaction and trace basilar atelectasis. <Electronically signed by Rodney Rogers > 06/01/20 [id number]
== END ==
LOC: M RAD 15:43
PROVIDERS: ATTEND Nurse Practitioner Adult Health
DX: R06.02 Shortness of breath (principal); J98.11 Atelectasis

== ENCOUNTER → 2020-08-29 | Outpatient (CLI) | payer MEDICARE, BC, OTHER ==
[~2020-08-29] MED LIST changes: +MONT10TA10 PO; -MONT10TA4 PO
[2020-08-29 16:47] LABS: CREATININE FOR GFR 1.22 MG/DL (0.55-1.30); GLOMERULAR FILTRATION RATE 45.7 (>39)
== END ==
LOC: M WUC 11:03
PROVIDERS: ATTEND Orthopaedic Surgery
DX: M17.12 Unilateral primary osteoarthritis, left knee (principal)

== ENCOUNTER → 2020-10-07 | Outpatient (CLI) | payer MEDICARE, BC, OTHER ==
[2020-10-07 12:38] LABS: CREATININE FOR GFR 1.23 MG/DL (0.55-1.30); GLOMERULAR FILTRATION RATE 45.3 (>39)
== END ==
LOC: M LAB 11:11
PROVIDERS: ATTEND Orthopaedic Surgery
DX: M17.12 Unilateral primary osteoarthritis, left knee (principal)

== ENCOUNTER → 2020-10-10 | Outpatient (CLI) | payer MEDICARE, BC, OTHER ==
[~2020-10-10] MED LIST changes: +ISOVUE-300 61% 50ML VIAL As Ordered ONE
--- NOTE | 2020-10-10 11:33 | REP ---
INDICATION: UNILATERAL PRIMARY OSTEOARTHRITIS. COMPARISON: None. TECHNIQUE: After left knee arthrogram procedure, axial CT images are performed with sagittal and coronal reconstruction images. FINDINGS: There is no fracture or dislocation. There is severe truncation of the anterior horn and body of the medial meniscus. There is no definite tear seen of the lateral meniscus. No full-thickness tears are seen of the cruciate or collateral ligaments. The extensor mechanism is grossly intact. There is diffuse severe chondromalacia along the lateral patellar facet with a more moderate degree of chondromalacia along the medial patellar facet. There is mild spurring of the patellar facets and superior pole of the patella. There is severe chondromalacia at the weight-bearing surface of the medial femoral condyle and tibial plateau with associated subchondral sclerosis and cystic change. There is a more mild degree of scattered chondromalacia of the lateral femoral condyle and tibial plateau, with a focal area of more moderate cartilaginous thinning posteriorly in the lateral femoral condyle. Mild contrast extension is noted into the medial popliteal fossa. IMPRESSION: Severe truncation of the anterior horn and body of the medial meniscus. No definite tear of the lateral meniscus. Significant diffuse chondromalacia as discussed above. The most significant areas of chondromalacia are along the medial femoral condyle and tibial plateau as well as lateral patellar facet. <Electronically signed by Giuseppe Montemayor > 10/10/20 [id number]
--- NOTE | 2020-10-10 12:05 | REP ---
INDICATION: UNILATERAL PRIMARY OSTEOARTHRITIS. COMPARISON: None TECHNIQUE: The procedure was performed by WILLIAM Courtney, under the direct supervision of Dr. Montemayor. The benefits and risks of the procedure were explained to the patient, and an informed consent was obtained. Directly prior to the start of the procedure, a formal time-out was completed in the procedure room. The left tibiofemoral joint space was localized using fluoroscopic guidance. The skin was prepped and draped in a sterile fashion. Approximately 5 mL of 1% Lidocaine 10 mg/ml was used as a local anesthetic. Using fluoroscopic guidance, a #22 gauge spinal needle was inserted and advanced into the left tibiofemoral joint space. Approximately 15 mL of Isovue 300 was injected to verify placement and for postprocedural imaging. The needle was removed and hemostasis was achieved. FINDINGS: The patient tolerated the procedure well and there were no immediate complications. IMPRESSION: 1. Left tibiofemoral CT arthrogram injection under fluoroscopic guidance. 0.2 minutes of fluoroscopy time was utilized for this procedure. Some fluoroscopic images are performed with last image hold technology. These images require no additional radiation. <Electronically signed by Keiry Marquis > 10/10/20 [id number] <Electronically signed by Giuseppe Montemayor > 10/10/20 1201
== END ==
LOC: M RADPRO 08:59
PROVIDERS: ATTEND Orthopaedic Surgery
DX: M23.312 Other meniscus derangements, anterior horn of medial meniscus, left knee (principal); M17.12 Unilateral primary osteoarthritis, left knee
CPT/HCPCS: 27369; 73701; 77002; Q9967

== ENCOUNTER → 2021-01-23 | Outpatient (REF) | payer MEDICARE, BC, OTHER ==
[~2021-01-23] MED LIST changes: -ISOVUE-300 61% 50ML VIAL As Ordered ONE
[2021-01-23 18:42] LABS: BACTERIA, URINE AUTO NEGATIVE (NEGATIVE); MUCUS, URINE SMALL (NEGATIVE); RBC, URINE AUTO 14 /HPF (0-3); SQUAMOUS EPITHELIAL CELL UR AU 1 /HPF (0-6); WBC, URINE AUTO 2 /HPF (0-3)
== END ==
LOC: M LAB REF 17:22
PROVIDERS: ATTEND Internal Medicine Nephrology
DX: R31.9 Hematuria, unspecified (principal)

== ENCOUNTER → 2021-02-22 | Outpatient (REF) | payer MEDICARE, BC, OTHER | LOC: M LAB REF 17:22 | PROVIDERS: ATTEND Internal Medicine Nephrology | DX: N18.32 Chronic kidney disease, stage 3b (principal) ==

== ENCOUNTER → 2021-02-28 | Outpatient (CLI) | payer MEDICARE, BC, OTHER ==
[~2021-02-28] MED LIST changes: +ISOVUE-370 76% 100ML VIAL As Ordered ONE
--- NOTE | 2021-02-28 14:37 | REP ---
INDICATION: CKD 3B, HEMATURIA, HTN CKD. COMPARISON: Comparison abdominal CT study 03 January 2010.. TECHNIQUE: Contrast dose: 100 ML of Isovue [address] technique: Helical scanning is acquired and overlapping 1.5 mm and contiguous 3 mm axial images are reformatted. In addition, maximum intensity projection and multiplanar re-formation images are generated in sagittal and coronal imaging projections. Delayed postcontrast acquisition is included. CT urogram. 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 Vascular calcification is seen. The lung bases are essentially clear on axial CT images. Some linear fibrosis seen in the left lower lobe. There is a small accessory splenule. The spleen is otherwise unremarkable. The liver is normal in size [place] homogeneous in texture. No abnormality is noted in the pancreas or the gallbladder. Normal adrenal glands are observed. There is no evidence of intrarenal calculus. No hydronephrosis is seen. There are small peripelvic cysts in the left kidney. No cortical cyst is appreciated. No filling defect is seen in the upper tracts on delayed phase scanning. Ureters describe a normal course to the bladder. No bladder mass lesion is observed. Uterus is surgically absent. There is left colonic diverticulosis without CT evidence of diverticulitis. Small and large bowel loops are otherwise unremarkable in the abdomen and pelvis. The appendix is surgically absent. No bony destructive lesion or abdominal wall defect is observed. IMPRESSION: No urinary tract calculus seen. No renal mass or bladder mass is observed. Left colonic diverticulosis. Post hysterectomy and appendectomy. No acute abdominal or pelvic abnormality. <Electronically signed by Yuan Hannon > 02/28/21 [id number]
== END ==
LOC: M RAD 10:32
PROVIDERS: ATTEND Internal Medicine Nephrology
DX: N18.32 Chronic kidney disease, stage 3b (principal); R31.9 Hematuria, unspecified; I12.9 Hypertensive chronic kidney disease with stage 1 through stage 4 chronic kidney disease, or unspecified chronic kidney disease; K57.30 Diverticulosis of large intestine without perforation or abscess without bleeding
CPT/HCPCS: 74178; Q9967

== ENCOUNTER → 2021-04-05 | Outpatient (CLI) | payer MEDICARE, BC, OTHER ==
[~2021-04-05] MED LIST changes: -ISOVUE-370 76% 100ML VIAL As Ordered ONE
[2021-04-05 16:02] LABS: ALBUMIN 3.3 GM/DL (3.2-5.2); PERCENT SATURATION 26.4 % (13.2-45.0)
== END ==
LOC: M WUC 11:30
PROVIDERS: ATTEND Orthopaedic Surgery Adult Reconstructive Orthopaedic Surgery
DX: Z01.818 Encounter for other preprocedural examination (principal); M25.562 Pain in left knee; M17.12 Unilateral primary osteoarthritis, left knee

== ENCOUNTER → 2021-04-10 | Outpatient (CLI) | payer MEDICARE, BC, OTHER ==
--- NOTE | 2021-04-10 14:15 | REP ---
INDICATION: MODERATE PERSISTENT ASTHMA, UNCOMPLICATED. COMPARISON: Comparison chest x-ray is from June 01, 2020. TECHNIQUE: Two views.. FINDINGS: The lungs are symmetrically aerated and clear. The pleural angles are sharp. There is a multilead pacemaker in the right heart view of the left side. Heart size is borderline. Cardiothoracic ratio is 40 5.2%. There are degenerative changes in the thoracic spine. IMPRESSION: Heart near the upper range of normal in size. Multilead pacemaker. Otherwise no acute disease. <Electronically signed by Yuan Hannon > 04/10/21 [id number]
== END ==
LOC: M PLAIMG 12:15
PROVIDERS: ATTEND Nurse Practitioner Adult Health
DX: Z01.811 Encounter for preprocedural respiratory examination (principal); J45.40 Moderate persistent asthma, uncomplicated; Z95.0 Presence of cardiac pacemaker; M51.34 Other intervertebral disc degeneration, thoracic region

== ENCOUNTER → 2021-04-25 | Outpatient (REF) | payer MEDICARE, BC, OTHER | LOC: M LAB REF 16:59 | PROVIDERS: ATTEND Internal Medicine Nephrology | DX: N18.32 Chronic kidney disease, stage 3b (principal) ==

== ENCOUNTER → 2021-05-18 | Outpatient (CLI) | payer MEDICARE, BC, OTHER ==
--- NOTE | 2021-05-18 14:12 | REP ---
INDICATION: S/P KNEE REPLACEMENT,SWELLING R/O DVT. COMPARISON: None. TECHNIQUE: Multiple ultrasonographic images of the deep venous structures of the left lower extremity were obtained from the inguinal ligament to the ankle. Venous compression techniques, color doppler imaging, and augmentation techniques were also obtained where appropriate. As per the ACR guidelines the anterior tibial vein can not be effectively evaluated. Only compression techniques in the calf on the peroneal and posterior tibial veins was attempted/performed. FINDINGS: There is no abnormal echogenic material seen within any of the visualized deep venous structures that would suggest acute thrombosis. Coaptation is unremarkable throughout. Doppler interrogation shows an expected response to respiratory variability and augmentation in the thigh. Compression techniques in the calf showed no abnormality. The color flow images show what appears to be a normal vascular pattern throughout the thigh. In the posterior popliteal fossa a 6.1 x 1.8 x 4 cm sized fluid collection was identified. IMPRESSION: There is no ultrasonographic evidence of deep venous thrombosis involving any of the visualized deep venous structures of the left lower extremity as described above. Bruner's cyst as described above. <Electronically signed by Brooks Omer > 05/18/21 [id number]
== END ==
LOC: M RAD 13:18
PROVIDERS: ATTEND Orthopaedic Surgery Adult Reconstructive Orthopaedic Surgery
DX: Z47.89 Encounter for other orthopedic aftercare (principal); M79.89 Other specified soft tissue disorders; M25.562 Pain in left knee; M71.22 Synovial cyst of popliteal space [Baker], left knee

== ENCOUNTER → 2021-07-26 | Outpatient (REF) | payer MEDICARE, BC, OTHER ==
[~2021-07-26] MED LIST changes: -AMIO200T3 PO; +AMIO200T49 PO; +LOSA50TA28 PO; -LOSA50TA88 PO; -MONT10TA10 PO; +MONT10TA97 PO
[2021-07-26 18:31] LABS: MAGNESIUM LEVEL 2.2 MG/DL (1.8-2.4)
== END ==
LOC: M LAB REF 17:10
PROVIDERS: ATTEND Nurse Practitioner Family
DX: N18.32 Chronic kidney disease, stage 3b (principal); I48.91 Unspecified atrial fibrillation

== ENCOUNTER → 2021-08-21 | Outpatient (REF) | payer MEDICARE, BC, OTHER ==
[2021-08-21 18:11] LABS: APPEARANCE, URINE CLEAR (CLEAR); BACTERIA, URINE AUTO NEGATIVE (NEGATIVE); BILIRUBIN, URINE AUTO NEGATIVE (NEGATIVE); BLOOD, URINE BLOOD 2+ (NEGATIVE); COLOR, URINE YELLOW (YELLOW); GLUCOSE, URINE (UA) AUTO NEGATIVE (NEGATIVE); KETONE, URINE AUTO NEGATIVE (NEGATIVE); LEUKOCYTE ESTERASE, URINE AUTO NEGATIVE (NEGATIVE); MUCUS, URINE SMALL (NEGATIVE); NITRITE, URINE AUTO NEGATIVE (NEGATIVE); PROTEIN, URINE AUTO NEGATIVE (NEGATIVE); RBC, URINE AUTO 10 /HPF (0-3); SPECIFIC GRAVITY URINE AUTO 1.009 (1.002-1.035); SQUAMOUS EPITHELIAL CELL UR AU 0 /HPF (0-6); UROBILINOGEN, URINE AUTO 0.2 mg/dL (0.0-2.0); WBC, URINE AUTO 0 /HPF (0-3)
== END ==
LOC: M SMT 17:10
PROVIDERS: ATTEND Physician Assistant
DX: R31.21 Asymptomatic microscopic hematuria (principal)

== ENCOUNTER → 2021-12-10 | Outpatient (REF) | payer MEDICARE, BC, OTHER | LOC: M LAB REF 16:44 | PROVIDERS: ATTEND Nurse Practitioner Family | DX: N39.0 Urinary tract infection, site not specified (principal) ==

== ENCOUNTER → 2022-01-02 | Outpatient (REF) | payer MEDICARE, BC, OTHER ==
[~2022-01-02] MED LIST changes: +ALBU2.5V10; -ALBU83IN
== END ==
LOC: M LAB REF 16:11
PROVIDERS: ATTEND Internal Medicine
DX: S70.362A Insect bite (nonvenomous), left thigh, initial encounter (principal); R53.83 Other fatigue; W57.XXXA Bitten or stung by nonvenomous insect and other nonvenomous arthropods, initial encounter; Y92.9 Unspecified place or not applicable; Y93.9 Activity, unspecified; Y99.8 Other external cause status

== ENCOUNTER → 2022-02-06 | Outpatient (REF) | payer MEDICARE, BC, OTHER ==
[2022-02-06 18:17] LABS: PERCENT SATURATION 18.3 % (13.2-45.0)
== END ==
LOC: M LAB REF 16:32
PROVIDERS: ATTEND Internal Medicine
DX: G25.81 Restless legs syndrome (principal); I95.9 Hypotension, unspecified

== ENCOUNTER → 2022-02-22 | Outpatient (CLI) | payer MEDICARE, BC, OTHER ==
[2022-02-25 23:07] LABS: IgG P18 AB Absent (.); IgG P23 AB Absent (.); IgG P28 AB Present (.); IgG P30 AB Absent (.); IgG P39 AB Absent (.); IgG P41 AB Absent (.); IgG P45 AB Absent (.); IgG P66 AB Absent (.); IgG P93 AB Absent (.); IgM P23 AB Absent (.); IgM P39 AB Absent (.); IgM P41 AB Absent (.); LYME IgG WB INTERPRETATION Negative (.); LYME IgM WB INTERPRETATION Negative (.)
== END ==
LOC: M WUC 14:26
PROVIDERS: ATTEND Nurse Practitioner Family
DX: A69.20 Lyme disease, unspecified (principal)

== ENCOUNTER → 2022-04-10 | Outpatient (REF) | payer MEDICARE, OTHER, BC ==
[2022-04-16 11:08] LABS: CALPROTECTIN STOOL 97 ug/g (0-120); FATS NEUTRAL Normal (.); FATS TOTAL Normal (.)
== END ==
LOC: M LAB REF 16:06
PROVIDERS: ATTEND Internal Medicine Gastroenterology
DX: K44.9 Diaphragmatic hernia without obstruction or gangrene (principal); R13.10 Dysphagia, unspecified; K21.9 Gastro-esophageal reflux disease without esophagitis; R19.4 Change in bowel habit

== ENCOUNTER → 2022-04-18 | Outpatient (REF) | payer MEDICARE, OTHER, BC | LOC: M LAB REF 17:04 | PROVIDERS: ATTEND Nurse Practitioner Family | DX: N39.0 Urinary tract infection, site not specified (principal) ==

== ENCOUNTER → 2022-06-05 | Outpatient (REF) | payer MEDICARE, OTHER, BC ==
[2022-06-05 13:49] LABS: PERCENT SATURATION 29.9 % (13.2-45.0)
== END ==
LOC: M LAB REF 12:04
PROVIDERS: ATTEND Internal Medicine
DX: D50.9 Iron deficiency anemia, unspecified (principal)

== ENCOUNTER → 2022-06-13 | Outpatient (CLI) | payer MEDICARE, OTHER, BC | LOC: M PLAIMG 12:45 | PROVIDERS: ATTEND Internal Medicine | DX: M79.672 Pain in left foot (principal); M77.32 Calcaneal spur, left foot; M19.072 Primary osteoarthritis, left ankle and foot ==

== ENCOUNTER → 2022-06-24 | Outpatient (REF) | payer MEDICARE, OTHER, BC ==
[2022-06-24 15:18] LABS: CORTISOL AM 15.3 UG/DL (4.3-22.4); RHEUMATOID FACTOR QUANT < 3.5 IU/ML (<14); URIC ACID 6.3 MG/DL (3.1-7.8)
== END ==
LOC: M LAB REF 12:24
PROVIDERS: ATTEND Internal Medicine
DX: I13.0 Hypertensive heart and chronic kidney disease with heart failure and stage 1 through stage 4 chronic kidney disease, or unspecified chronic kidney disease (principal); M13.0 Polyarthritis, unspecified; R53.83 Other fatigue; N18.9 Chronic kidney disease, unspecified; I50.9 Heart failure, unspecified

== ENCOUNTER → 2022-08-08 | Outpatient (CLI) | payer MEDICARE, BC, OTHER | LOC: M RAD 15:10 | PROVIDERS: ATTEND Physician Assistant Surgical | DX: M51.14 Intervertebral disc disorders with radiculopathy, thoracic region (principal); M51.36 Other intervertebral disc degeneration, lumbar region; I70.0 Atherosclerosis of aorta; M25.78 Osteophyte, vertebrae; M54.50 Low back pain, unspecified ==

== ENCOUNTER → 2022-08-13 | Outpatient (CLI) | payer MEDICARE, OTHER, BC | LOC: M CARPUL 08:35 | PROVIDERS: ATTEND Nurse Practitioner Adult Health | DX: J45.40 Moderate persistent asthma, uncomplicated (principal) ==

== ENCOUNTER → 2022-08-14 | Outpatient (REF) | payer MEDICARE, OTHER, BC | LOC: M LAB REF 16:53 | PROVIDERS: ATTEND Nurse Practitioner Family | DX: N39.0 Urinary tract infection, site not specified (principal) ==

== ENCOUNTER → 2022-08-19 | Outpatient (CLI) | payer MEDICARE, BC, OTHER | LOC: M RAD 08:51 | PROVIDERS: ATTEND Nurse Practitioner Adult Health | DX: J45.40 Moderate persistent asthma, uncomplicated (principal); Z95.0 Presence of cardiac pacemaker; I71.40 Abdominal aortic aneurysm, without rupture, unspecified ==

== ENCOUNTER → 2022-08-19 | Outpatient (CLI) | payer MEDICARE, BC, OTHER | LOC: M RAD 08:48 | PROVIDERS: ATTEND Internal Medicine | DX: I71.40 Abdominal aortic aneurysm, without rupture, unspecified (principal); J45.40 Moderate persistent asthma, uncomplicated; Z95.0 Presence of cardiac pacemaker ==

== ENCOUNTER → 2022-09-30 | Outpatient (CLI) | payer MEDICARE, BC, OTHER ==
[2022-09-30 15:38] LABS: BASO # 0.1 10^3/uL (0.0-0.2); EOS # 0.2 10^3/uL (0.0-0.5); EOS % 1.8 % (0.0-3.0); HEMOGLOBIN 13.5 g/dl (12.0-15.5); LYMPH # 2.6 10^3/uL (1.5-5.0); LYMPH % 32.5 % (24.0-44.0); MEAN CORPUSCULAR HEMOGLOBIN 28.7 pg (27.0-33.0); MEAN CORPUSCULAR HGB CONC 32.9 g/dl (32.0-36.5); MONO % 12.2 % (2.0-8.0); NEUTROPHILS # 4.3 10^3/uL (1.5-8.5); NEUTROPHILS % 52.3 % (36.0-66.0); PLATELET COUNT, AUTOMATED 278 10^3/uL (150-450); RED BLOOD COUNT 4.71 10^6/uL (4.00-5.40); WHITE BLOOD COUNT 8.1 10^3/uL (4.0-10.0)
[2022-09-30 15:41] LABS: C REACTIVE PROTEIN QUANTITATIV 0.4 MG/DL (<1.0)
[2022-09-30 15:42] LABS: RHEUMATOID FACTOR QUANT 3.9 IU/ML (<14)
[2022-09-30 15:46] LABS: ALBUMIN 3.5 G/DL (3.2-5.2); BILIRUBIN,TOTAL 0.5 MG/DL (0.3-1.2); CALCIUM LEVEL 9.2 MG/DL (8.3-10.6); CREATININE FOR GFR 1.06 MG/DL (0.55-1.30); GLOMERULAR FILTRATION RATE 53.5 (>39); POTASSIUM SERUM 4.2 MMOL/L (3.5-5.1); TOTAL PROTEIN 6.9 G/DL (5.7-8.2)
[2022-09-30 16:02] LABS: ERYTHROCYTE SEDIMENTATION RATE 40 mm/hr (0-30)
== END ==
LOC: M PLALAB 13:33
PROVIDERS: ATTEND Physician Assistant Surgical
DX: M47.896 Other spondylosis, lumbar region (principal)

== ENCOUNTER → 2022-10-16 | Outpatient (CLI) | payer MEDICARE, BC, OTHER | LOC: M WHC 10:40 | PROVIDERS: ATTEND Internal Medicine | DX: M81.0 Age-related osteoporosis without current pathological fracture (principal); M85.851 Other specified disorders of bone density and structure, right thigh; M85.852 Other specified disorders of bone density and structure, left thigh ==

== ENCOUNTER → 2022-12-26 | Outpatient (CLI) | payer MEDICARE, BC, OTHER ==
[2022-12-26 16:59] LABS: C REACTIVE PROTEIN QUANTITATIV 9.2 MG/DL (<1.0)
[2022-12-26 17:00] LABS: BASO # 0.1 10^3/uL (0.0-0.2); BASO % 0.4 % (0.0-1.0); EOS # 0.1 10^3/uL (0.0-0.5); EOS % 0.4 % (0.0-3.0); HEMATOCRIT 40.4 % (36.0-47.0); HEMOGLOBIN 13.7 g/dl (12.0-15.5); LYMPH # 2.6 10^3/uL (1.5-5.0); LYMPH % 19.4 % (24.0-44.0); MEAN CORPUSCULAR HEMOGLOBIN 29.3 pg (27.0-33.0); MEAN CORPUSCULAR HGB CONC 33.9 g/dl (32.0-36.5); MEAN CORPUSCULAR VOLUME 86.3 fl (80.0-96.0); MONO % 13.1 % (2.0-8.0); NEUTROPHILS # 8.9 10^3/uL (1.5-8.5); NEUTROPHILS % 66.3 % (36.0-66.0); PLATELET COUNT, AUTOMATED 268 10^3/uL (150-450); RED BLOOD COUNT 4.68 10^6/uL (4.00-5.40); WHITE BLOOD COUNT 13.4 10^3/uL (4.0-10.0)
[2022-12-26 17:01] LABS: URIC ACID 6.2 MG/DL (3.1-7.8)
[2022-12-26 17:10] LABS: ERYTHROCYTE SEDIMENTATION RATE 87 mm/hr (0-30)
[2022-12-26 17:18] LABS: MONO # 1.8 10^3/uL (0.0-0.8)
[2022-12-26 18:30] LABS: SOURCE, BODY FLUID RT KNEE; SYNOVIAL FLUID COLOR YELLOW (COLORLESS)
[2022-12-26 18:45] LABS: CRYSTALS, BODY FLUID CA PYROPHOSPHATE (NONE SEEN); SOURCE, BODY FLUID CRYSTALS RT KNEE
[2022-12-26 19:20] LABS: SOURCE, BODY FLUID GLUCOSE RT KNEE
== END ==
LOC: M WUC 13:25
PROVIDERS: ATTEND Physician Assistant
DX: M17.11 Unilateral primary osteoarthritis, right knee (principal)

== ENCOUNTER → 2023-02-18 | Outpatient (REF) | payer MEDICARE, BC, OTHER ==
[2023-02-18 18:06] LABS: PTH INTACT 58.5 PG/ML (18.5-88.0)
== END ==
LOC: M LAB REF 16:44
PROVIDERS: ATTEND Internal Medicine
DX: I50.32 Chronic diastolic (congestive) heart failure (principal); M10.9 Gout, unspecified

== ENCOUNTER → 2023-08-07 | Outpatient (REF) | payer MEDICARE, BC, OTHER | LOC: M LAB REF 17:21 | PROVIDERS: ATTEND Nurse Practitioner Family | DX: N39.0 Urinary tract infection, site not specified (principal) ==

== ENCOUNTER → 2023-09-03 | Outpatient (REF) | payer MEDICARE, OTHER | LOC: M LAB REF 16:12 | PROVIDERS: ATTEND Internal Medicine | DX: N39.0 Urinary tract infection, site not specified (principal); B96.4 Proteus (mirabilis) (morganii) as the cause of diseases classified elsewhere ==

== ENCOUNTER → 2023-12-09 | Outpatient (REF) | payer MEDICARE, OTHER, BC | LOC: M LAB REF 17:10 | PROVIDERS: ATTEND Nurse Practitioner Family | DX: N39.0 Urinary tract infection, site not specified (principal) ==

== ENCOUNTER → 2024-01-06 | Outpatient (REF) | payer MEDICARE, OTHER ==
[~2024-01-06] MED LIST changes: +BYST1TAB2 PO; -BYST5TAB2 PO
[2024-01-06 19:49] LABS: PERCENT SATURATION 24.4 % (13.2-45.0)
== END ==
LOC: M LAB REF 18:16
PROVIDERS: ATTEND Internal Medicine
DX: R53.83 Other fatigue (principal)

== ENCOUNTER → 2024-06-04 | Outpatient (CLI) | payer MEDICARE, OTHER, BC | LOC: M WUC 13:11 | PROVIDERS: ATTEND Physician Assistant | DX: M25.571 Pain in right ankle and joints of right foot (principal) ==

== ENCOUNTER → 2025-02-08 | Outpatient (REF) | payer MEDICARE, OTHER ==
[~2025-02-08] MED LIST changes: -AMIO200T49 PO; +AMIO200T54 PO
[2025-02-08 15:15] LABS: IRON (FE) 83.0 UG/DL (50-170); PERCENT SATURATION 23.4 % (13.2-45.0)
== END ==
LOC: M LAB REF 13:47
PROVIDERS: ATTEND Internal Medicine
DX: N18.32 Chronic kidney disease, stage 3b (principal)

== ENCOUNTER → 2025-03-23 | Outpatient (REF) | payer MEDICARE, OTHER | LOC: M LABWUC 14:32 | PROVIDERS: ATTEND Nurse Practitioner Acute Care | DX: Z13.9 Encounter for screening, unspecified (principal); R53.83 Other fatigue ==

== ENCOUNTER → 2025-05-06 | Outpatient (REF) | payer MEDICARE, OTHER | LOC: M LAB REF 16:52 | PROVIDERS: ATTEND Nurse Practitioner Family | DX: N39.0 Urinary tract infection, site not specified (principal) ==

== ENCOUNTER → 2025-06-24 | Outpatient (CLI) | payer MEDICARE, BC | LOC: M PLAIMG 10:23 | PROVIDERS: ATTEND Internal Medicine | DX: M19.011 Primary osteoarthritis, right shoulder (principal) ==